=== PATIENT | male | born 1960 | race Caucasian/White ===

== ENCOUNTER 2016-03-05 07:31 | Emergency (ER) | payer OTHER ==
[2016-03-05 08:51] LABS: ALT 27 U/L (7-52); AST 31 U/L (13-39); Albumin 4.4 g/dL (3.2-5.2); Alkaline Phosphatase 46 U/L (34-104); Anion Gap 11 mmol/L (2-11); BUN/Creatinine Ratio 10.3 (8-20); Blood Urea Nitrogen 10 mg/dL (6-24); C Reactive Protein < 1.00 mg/L (< 5.00); CO2 Carbon Dioxide 25 mmol/L (22-32); Calcium 9.5 mg/dL (8.6-10.3); Chloride 102 mmol/L (101-111); EGFR African American 103.3 (>60); EGFR Non-African American 80.4 (>60); Globulin 2.7 g/dL (2-4); Glucose 125 mg/dL (70-100); Lipase 13 U/L (11.0-82.0); Potassium 3.5 mmol/L (3.5-5.0); Sodium 138 mmol/L (133-145); Total Protein 7.1 g/dL (6.4-8.9)
--- NOTE | 2016-03-05 08:54 | RAD ---
HISTORY: Pain, chest pain COMPARISONS: None VIEWS:1: Single frontal portable view of the chest at 8:35 AM FINDINGS: LINES AND TUBES: None. CARDIOMEDIASTINAL SILHOUETTE: The cardiomediastinal silhouette is normal for portable technique. PLEURA: The costophrenic angles are sharp. No pleural abnormalities are noted. LUNG PARENCHYMA: The lungs are clear. ABDOMEN: The upper abdomen is clear. There is no subphrenic gas. BONES AND SOFT TISSUES: No bone or soft tissue abnormalities are noted. IMPRESSION: NO ACTIVE CARDIOPULMONARY DISEASE.
[2016-03-05 09:02] LABS: Hematocrit 40 % (42-52); Hemoglobin 13.6 g/dl (14.0-18.0); Mean Corpuscular HGB Conc 34 g/dl (31-36); Mean Corpuscular Hemoglobin 33 pg (27-31); Mean Corpuscular Volume 97 fL (80-94); Mean Platelet Volume 9 um3 (7.4-10.4); Red Blood Count 4.18 10^6/ul (4.0-5.4); Red Cell Distribution Width 13 % (10.5-15); White Blood Count 4.9 10^3/ul (3.5-10.8)
[2016-03-05 10:02] LABS: Urine Bilirubin Negative (Negative); Urine Glucose Negative (Negative); Urine Nitrite Negative (Negative)
--- NOTE | 2016-03-05 10:58 | RAD ---
Indication: Abdominal pain Real-time sonography of the right upper quadrant was performed. The liver is normal in size. It is diffusely increased in echogenicity consistent with hepatic steatosis. The common duct measures up to 6 mm. No gallstones, pericholecystic fluid or wall thickening is identified. Right kidney measures 11.2 x 5.2 x 6.4 cm. No hydronephrosis is noted. The visualized pancreatic head, neck and proximal body demonstrates no mass or pancreatic ductal dilatation. There is fatty infiltration of the pancreas. Aorta and inferior vena cava are unremarkable. IMPRESSION: Hepatic steatosis. No evidence of cholelithiasis or biliary ductal dilatation.
[2016-03-05 12:32] VITALS: BP 139/86
--- NOTE | 2016-03-05 14:05 | ED ---
Pillo Bright Benjamin, scribed for Frederic Jain MD on 03/05/16 at 0831 . Abdominal Pain/Male - HPI Summary HPI Summary: 55yo male c/o generalized abdominal discomfort with feelings of fullness for a couple of days. Pt reports few episodes of nausea and feeling like passing out. Pt had less food intake since discomfort due to fullness. Pt denies any urinary symptoms and reports normal BM. Hx includes Barretts Esophagus, HTN, and high cholesterol. Pt quit smoking 1 yr ago, and is a daily alcohol drinker. - History of Current Complaint Chief Complaint: EDAbdPain Stated Complaint: ABD PAIN Time Seen by Provider: 03/05/16 08:18 Hx Obtained From: Patient Onset/Duration: Gradual Onset, Lasting Days, Still Present Timing: Constant, Lasting Days Severity Initially: Moderate Severity Currently: Moderate Pain Intensity: 6 Pain Scale Used: 0-10 Numeric Location: Diffuse Radiates: No Character: Other: - "FULL" Aggravating Factor(s): Nothing Alleviating Factor(s): Nothing Associated Signs And Symptoms: Positive: Nausea. Negative: Blood in Stool, Urinary Symptoms, Diarrhea - Allergies/Home Medications Allergies/Adverse Reactions: Allergies Allergy/AdvReac Type Severity Reaction Status Date / Time Lactose Intolerance (GI) Allergy Abdominal Verified 03/05/16 07:36 Pain Home Medications: Home Medications Atorvastatin* [Lipitor*] 20 mg PO DAILY 03/05/16 [History Confirmed 03/05/16] Calcium [Calcium Aspartate] 03/05/16 [History] Lisinopril TAB* [Prinivil TAB*] 20 mg PO DAILY 03/05/16 [History Confirmed 03/05] Metoprolol Tartrate TAB* [Lopressor TAB*] 50 mg PO BID 03/05/16 [History Confirmed 03/05/16] Multiple Vitamin [Multi Vitamin] 1 tab PO 03/05/16 [History] Randolph-3 Fatty Acids [Fish Oil] 03/05/16 [History] buPROPion TAB* [Wellbutrin TAB*] 75 mg PO BID 03/05/16 [History Confirmed ] PMH/Surg Hx/FS Hx/Imm Hx Cardiovascular History: Reports: Hx Hypercholesterolemia, Hx Hypertension GI History: Reports: Other GI Disorders - Kaufman's Esophagus Infectious Disease History: No Infectious Disease History: Denies: Traveled Outside the [place] in Last 30 Days - Family History Known Family History: Positive: Unknown - pt states "not sure" - Social History Occupation: Employed Full-time Lives: With Family Alcohol Use: Daily Alcohol Amount: 6 drinks daily Substance Use Type: Reports: None Smoking Status (MU): Former Smoker Review of Systems Constitutional: Negative Eyes: Negative ENT: Negative Cardiovascular: Negative Respiratory: Negative Positive: Abdominal Pain, Nausea. Negative: Vomiting, Diarrhea Genitourinary: Negative Musculoskeletal: Negative Skin: Negative Neurological: Negative Psychological: Normal All Other Systems Reviewed And Are Negative: Yes Physical Exam Triage Information Reviewed: Yes Vital Signs On Initial Exam: Initial Vitals Temp Pulse Resp BP Pulse Ox 98.6 F 76 15 147/91 100 03/05/16 07:36 03/05/16 07:36 03/05/16 07:36 03/05/16 07:36 03/05/16 07:36 Vital Signs Reviewed: Yes Appearance: Positive: Well-Appearing, No Pain Distress, Well-Nourished Skin: Positive: Warm, Skin Color Reflects Adequate Perfusion, Dry Head/Face: Positive: Normal Head/Face Inspection Eyes: Positive: Normal ENT: Positive: Normal ENT inspection Neck: Positive: Supple, Nontender Respiratory/Lung Sounds: Positive: Clear to Auscultation, Breath Sounds Present Cardiovascular: Positive: RRR Abdomen Description: Positive: Nontender, Soft Bowel Sounds: Positive: Present Musculoskeletal: Positive: Normal Neurological: Positive: Normal, Sensory/Motor Intact, Alert, Oriented to Person Place, Time, CN Intact II-III Psychiatric: Positive: Affect/Mood Appropriate - [place] Coma Scale Coma Scale Total: 15 Diagnostics - Vital Signs Vital Signs Temp Pulse Resp BP Pulse Ox 03/05/16 08:11 70 100 03/05/16 07:36 98.6 F 76 15 147/91 100 - Laboratory Lab Results: Lab Results 03/05/16 03/05/16 03/05/16 Range/Units 07:55 07:55 07:55 WBC 4.9 (3.5-10.8) 10^3/ul RBC 4.18 (4.0-5.4) 10^6/ul Hgb 13.6 L (14.0-18.0) g/dl Hct 40 L (42-52) % MCV 97 H (80-94) fL MCH 33 H (27-31) pg MCHC 34 (31-36) g/dl RDW 13 (10.5-15) % Plt Count 257 (150-450) 10^3/ul MPV 9 (7.4-10.4) um3 Neut % (Auto) 56.3 (38-83) % Lymph % (Auto) 34.0 (25-47) % Creek % (Auto) 7.6 (1-9) % Eos % (Auto) 1.5 (0-6) % Baso % (Auto) 0.6 (0-2) % Absolute Neuts (auto) 2.8 (1.5-7.7) 10^3/ul Absolute Lymphs (auto) 1.7 (1.0-4.8) 10^3/ul Absolute Monos (auto) 0.4 (0-0.8) 10^3/ul Absolute Eos (auto) 0.1 (0-0.6) 10^3/ul Absolute Basos (auto) 0 (0-0.2) 10^3/ul Absolute Nucleated RBC 0.01 10^3/ul Nucleated RBC % 0.1 Sodium 138 (133-145) mmol/L Potassium 3.5 (3.5-5.0) mmol/L Chloride 102 (101-111) mmol/L Carbon Dioxide 25 (22-32) mmol/L Anion Gap 11 (2-11) mmol/L BUN 10 (6-24) mg/dL Creatinine 0.97 (0.67-1.17) mg/dL Est GFR ( Amer) 103.3 (>60) Est GFR (Non-Af Amer) 80.4 (>60) BUN/Creatinine Ratio 10.3 (8-20) Glucose 125 H (70-100) mg/dL Lactic Acid 1.9 (0.5-2.0) mmol/L Calcium 9.5 (8.6-10.3) mg/dL Total Bilirubin 0.60 (0.2-1.0) mg/dL AST 31 (13-39) U/L ALT 27 (7-52) U/L Alkaline Phosphatase 46 (34-104) U/L Troponin I 0.00 (<0.04) ng/mL C-Reactive Protein < 1.00 (< 5.00) mg/L Total Protein 7.1 (6.4-8.9) g/dL Albumin 4.4 (3.2-5.2) g/dL Globulin 2.7 (2-4) g/dL Albumin/Globulin Ratio 1.6 (1-3) Lipase 13 (11.0-82.0) U/L Urine Color Urine Appearance Urine pH (5-9) Ur Specific [place] (1.010-1.030) Urine Protein (Negative) Urine Ketones (Negative) Urine Blood (Negative) Urine Nitrate (Negative) Urine Bilirubin (Negative) Urine Urobilinogen (Negative) Ur Leukocyte Esterase (Negative) Urine Glucose (Negative) 03/05/16 03/05/16 Range/Units 08:20 11:15 WBC (3.5-10.8) 10^3/ul RBC (4.0-5.4) 10^6/ul Hgb (14.0-18.0) g/dl Hct (42-52) % MCV (80-94) fL MCH (27-31) pg MCHC (31-36) g/dl RDW (10.5-15) % Plt Count (150-450) 10^3/ul MPV (7.4-10.4) um3 Neut % (Auto) (38-83) % Lymph % (Auto) (25-47) % Creek % (Auto) (1-9) % Eos % (Auto) (0-6) % Baso % (Auto) (0-2) % Absolute Neuts (auto) (1.5-7.7) 10^3/ul Absolute Lymphs (auto) (1.0-4.8) 10^3/ul Absolute Monos (auto) (0-0.8) 10^3/ul Absolute Eos (auto) (0-0.6) 10^3/ul Absolute Basos (auto) (0-0.2) 10^3/ul Absolute Nucleated RBC 10^3/ul Nucleated RBC % Sodium (133-145) mmol/L Potassium (3.5-5.0) mmol/L Chloride (101-111) mmol/L Carbon Dioxide (22-32) mmol/L Anion Gap (2-11) mmol/L BUN (6-24) mg/dL Creatinine (0.67-1.17) mg/dL Est GFR ( Amer) (>60) Est GFR (Non-Af Amer) (>60) BUN/Creatinine Ratio (8-20) Glucose (70-100) mg/dL Lactic Acid (0.5-2.0) mmol/L Calcium (8.6-10.3) mg/dL Total Bilirubin (0.2-1.0) mg/dL AST (13-39) U/L ALT (7-52) U/L Alkaline Phosphatase (34-104) U/L Troponin I 0.00 (<0.04) ng/mL C-Reactive Protein (< 5.00) mg/L Total Protein (6.4-8.9) g/dL Albumin (3.2-5.2) g/dL Globulin (2-4) g/dL Albumin/Globulin Ratio (1-3) Lipase (11.0-82.0) U/L Urine Color Yellow Urine Appearance Clear Urine pH 7.0 (5-9) Ur Specific [place] 1.018 (1.010-1.030) Urine Protein Negative (Negative) Urine Ketones Trace H (Negative) Urine Blood Negative (Negative) Urine Nitrate Negative (Negative) Urine Bilirubin Negative (Negative) Urine Urobilinogen Negative (Negative) Ur Leukocyte Esterase Negative (Negative) Urine Glucose Negative (Negative) Result Diagrams: 03/05/16 07:55 03/05/16 07:55 Lab Statement: Any lab studies that have been ordered have been reviewed, and results considered in the medical decision making process. - Radiology CXR Xray Interpretation: No Acute Changes Radiology Interpretation Completed By: Radiologist - Ultrasound No standard instances Ultrasound Interpretation: Positive (See Comments) - US GALL BLADDER IMPRESSION : Hepatic steatosis. No evidence of cholelithiasis or biliary ductal dilatation. Ultrasound Interpretation Completed By: Radiologist Abdominal Pain Fem Course/Dx - Course Course Of Treatment: Mr. Rodriguez presented with an episode of feeling nauseated, slightly faint and his palms were sweating and hot while driving to work this AM. he felt better after a few minutes but he came in concerned because he hasn' t been eating a lot lately because of feeling bloated and early satiety for the last couple of weeks. His W/U was negative with U/S of his RUQ and labs. He may at some point need a CT but not emergently. I will give him a trial of Sucralfate to see if this is mechanical irritation from his 5-6 drinks a day. - Diagnoses Provider Diagnoses: Abdominal pain Discharge - Discharge Plan Condition: Stable Disposition: HOME Prescriptions: Sucralfate SUSP (NF) [Carafate SUSP (NF)] 1 gm PO Q6H #120 ml Patient Education Materials: Abdominal Pain (ED) Additional Instructions: Please follow up with your Primary Care Physician in a few days. The documentation as recorded by the Pillo bhat Benjamin accurately reflects the service I personally performed and the decisions made by me, Frederic Jain MD.
== END 2016-03-05 12:34 | disposition home or self-care (01) ==
LOC: ED 07:31
DX: R10.9 Unspecified abdominal pain (principal); N28.89 Other specified disorders of kidney and ureter
CPT/HCPCS: 36415; 71010; 76705; 80053; 81003; 83605; 83690; 84484; 85025; 86140; 99283